=== PATIENT | male | born 1970 | race Caucasian/White ===

== ENCOUNTER 2018-09-26 14:58 | Emergency (ER) | payer SELFPAY ==
[~2018-09-26] VITALS: Ht 175.3 cm; Wt 83.9 kg
[2018-09-26 14:58] VITALS: BP 156/109
--- NOTE | 2018-09-26 15:08 | NUR ---
PT IS REFUSING TO BE SEEN BY ER PROVIDER. PT IS AAOX4 VERBALLY RESPONSIVE AND COOPERATIVE TO STAFF AND STATING HE WILL TAKE AN UBER HOME. AMA FORM SIGNED. D/C IN STABLE CONDITION.
== END 2018-09-26 15:12 | disposition home or self-care (01) ==
LOC: ER 15:01
DX: Z53.21 Procedure and treatment not carried out due to patient leaving prior to being seen by health care provider (principal); T75.89XA Other specified effects of external causes, initial encounter; X58.XXXA Exposure to other specified factors, initial encounter; Y93.89 Activity, other specified; Y92.89 Other specified places as the place of occurrence of the external cause; Y99.8 Other external cause status
CPT/HCPCS: A4606; Z7610